=== PATIENT | male | born 1950 | race Caucasian/White ===

== ENCOUNTER 2022-10-12 06:35 | Day surgery (SDC) | payer MEDICARE, BC ==
[~2022-10-12] VITALS: Ht 165.1 cm; Wt 117.0 kg
[~2022-10-12 06:35] MED LIST: Aspir 8181 MG; LOSA25; OLME5TAB PO; TAMS.4ER
[2022-10-12] MEDS ORDERED: ROSU5 (07:02)
[2022-10-12] MEDS ORDERED: MELO7.5 (07:02)
[2022-10-12] MEDS ORDERED: METF500 (07:02)
== END 2022-10-12 09:05 | disposition home or self-care (01) ==
LOC: ORSCSDS 06:35
PROVIDERS: Surgery
PROC: 0DBC8ZX Excision of Ileocecal Valve, Via Natural or Artificial Opening Endoscopic, Diagnostic (ICD-10-PCS; principal; 2022-10-12 08:00)
PROC: 0DBK8ZX Excision of Ascending Colon, Via Natural or Artificial Opening Endoscopic, Diagnostic (ICD-10-PCS; principal; 2022-10-12 08:00)
DX: Z12.11 Encounter for screening for malignant neoplasm of colon (principal); Z86.010 Personal history of colon polyps; D12.2 Benign neoplasm of ascending colon; D12.0 Benign neoplasm of cecum; I10 Essential (primary) hypertension; G47.33 Obstructive sleep apnea (adult) (pediatric); E11.9 Type 2 diabetes mellitus without complications; E66.01 Morbid (severe) obesity due to excess calories; Z68.41 Body mass index [BMI] 40.0-44.9, adult; F17.220 Nicotine dependence, chewing tobacco, uncomplicated
CPT/HCPCS: 82947; 88305; J2704; J7120

== ENCOUNTER 2022-11-09 05:53 | Inpatient (IN) | payer MEDICARE, BC ==
[~2022-11-09] VITALS: Ht 165.1 cm; Wt 111.7 kg
[2022-11-09] VITALS (16 sets, daily range): BP systolic 106–148; BP diastolic 67–94
[~2022-11-09 05:53] MED LIST changes: -Aspir 8181 MG; +Aspir 8181 MG PO; +Ativan1 MG PO; +FERSU300 PO; -LOSA25; +LOSA25 PO; +MELO7.5 PO; +METF500 PO; +ROSU5 PO; -TAMS.4ER; +TAMS.4ER PO
--- NOTE | 2022-11-09 16:07 | NUR ---
SHIFT SUMMARY POD 0R OPEN HEMICOLECTOMY, A&OX4. PT WITH ACADEMIC ADVISING DIRECTOR, MEDICATED PER EMR. PT STATES CONCERN ABOUT BEING ABLE TO SLEEP THROUGH THE NIGHT. IV FLUIDS RUNNING PER EMR. GLORIA DRESSING MIDLINE WITH NO DRAINAGE, LAP SITE X3 WITH STAPLE CLOSURE. SCHULZ DRAINING YELLOW FLUID. CALL LIGHT WITHIN REACH, WILL REPORT TO DANE BAKER.
[2022-11-10 04:03] VITALS: BP 144/96
[2022-11-10 04:17] LABS: BASOPHILS ABSOLUTE AUTO 0.04 K/mm3 (0.00-0.23); BASOPHILS PERCENT AUTO 0 % (0-2); EOSINOPHILS ABSOLUTE AUTO 0.04 K/mm3 (0.00-0.68); EOSINOPHILS PERCENT AUTO 0 % (0-6); Hematocrit 38.1 % (37.0-53.0); Hemoglobin 11.2 g/dL (13.5-17.5); IMMATURE GRAN ABSOLUTE AUTO 0.04 K/mm3 (0.00-0.10); IMMATURE GRAN PERCENT AUTO 0 % (0-1); LYMPHOCYTES ABSOLUTE AUTO 1.41 K/mm3 (0.84-5.20); LYMPHOCYTES PERCENT AUTO 14 % (21-46); MONOCYTES ABSOLUTE AUTO 1.43 K/mm3 (0.16-1.47); MONOCYTES PERCENT AUTO 14 % (4-13); Mean Corpuscular HGB 22.2 pg (26.0-34.0); Mean Corpuscular HGB Conc 29.4 g/dL (31.5-36.5); Mean Corpuscular Volume 75 fL (80-100); Mean Platelet Volume 9.8 fL (9.1-12.4); NEUTROPHILS ABSOLUTE AUTO 7.18 K/mm3 (1.96-9.15); NEUTROPHILS PERCENT AUTO 71 % (41-73); Platelet Count 383 K/mm3 (150-400); RDW Coefficient Variation 26.6 % (11.7-14.2); RDW Standard Deviation 70.7 fL (35.1-46.3); Red Blood Cell Count 5.05 M/mm3 (4.30-5.90); White Blood Cell Count 10.14 K/mm3 (4.00-11.30)
[2022-11-10 04:36] LABS: Bun/Creatinine Ratio 14.1 (12.0-20.0); Calcium, Blood 8.5 mg/dL (8.5-10.1); Creatinine, Blood 0.71 mg/dL (0.60-1.20); Potassium, Blood 4.6 mmol/L (3.5-5.5)
--- NOTE | 2022-11-10 06:19 | NUR ---
SHIFT SUMMARY PT A&OX4, PLEASANT AND COOPERATIVE WITH CARE. NO ACUTE CHANGES. PAIN BEING MANAGED WITH BEDSIDE HARDBOARD PRESS OPERATOR. TOLERATING SMALL AMOUNT OF PO. GLORIA DRESSING C/D/I, LAP SITES OPEN TO AIR, NO DRAINAGE. SCHULZ PATIENT AND DRAINING TO GRAVITY. CALLS APPROPRIATELY, CALL LIGHT WITHIN REACH.
[2022-11-10 07:24] VITALS: BP 144/81
[2022-11-10 14:50] VITALS: BP 123/71
--- NOTE | 2022-11-10 17:38 | NUR ---
SUMMARY NO ACUTE CHANGES T/O SHIFT. PT TOLERATING CLEAR LIQUIDS. PAIN CONTROLLED W/ASSURANCE SENIOR. AMBULATED IN [place] AND SAT UP IN CHAIR. SCHULZ CATH DC'D THIS AFTERNOON. AWAITING FIRST VOID POST SCHULZ REMOVAL. CALL LIGHT IN REACH.
[2022-11-10 19:20] VITALS: BP 113/77
[2022-11-11 02:25] VITALS: BP 124/74
--- NOTE | 2022-11-11 07:08 | NUR ---
SUMMARY PT WITH URINARY RETENTION.BLADDER SCAN DONE PRIOR TO AMBULATION FOR BRP. PT VOIDED,BUT DID NOT USE URINAL FOR MEASURING.POST VOID BLADDEER SCANNED WITH MINIMAL RETENTION. VOIDED 425 ML LATER. NO FLATUS.
[2022-11-11 07:50] VITALS: BP 110/59
[2022-11-11 15:11] VITALS: BP 121/67
--- NOTE | 2022-11-11 16:25 | NUR ---
SUMMARY NO ACUTE CHANGES T/O SHIFT. PT SAT UP IN CHAIR AND AMBULATED IN HALLS. VOIDING W/O DIFFICULTY. PAIN CONTROLLED PER WINTERIZER. TOLERATING FULL LIQUIDS. DENIES PASSING FLATUS. CALL LIGHT AND WINTERIZER IN REACH.
[2022-11-11 19:43] VITALS: BP 137/79
[2022-11-12 04:37] VITALS: BP 112/71
[2022-11-12 07:33] VITALS: BP 118/64
--- NOTE | 2022-11-12 08:19 | NUR ---
SUMMARY PT HAD SOFT NON FORMED BM TONIGHT. UP IN CHAIR THIS AM.
[2022-11-12 15:15] VITALS: BP 155/81
--- NOTE | 2022-11-12 16:36 | NUR ---
SHIFT SUMMARY POD 3 RIGHT HEMICOLECTOMY MIDLINE INCISION WIHT GLORIA DRESSING. SOME SANGUNEIOUS DRAINAGE ON DRESSING. 3 LAP SITES, CLOSED WITH TAMIA. PT A&O X4. PT DENIES ANY PAIN, ROADING ENGINEER D/C'ED TODAY. PT AMBULATES WITH NURSE UP AND DOWN THE HALLS. PT'S ABDOMEN IS MIDLY DISTENTED, PT PASSING LITTLE GAS AND HAVING SMALL BOWEL MOVMENTS. PT TOLERATING FULL LIQUID DIET WELL. CALL LIGHT WITHIN REACH.
[2022-11-12 19:38] VITALS: BP 128/87
[2022-11-13 04:28] VITALS: BP 140/77
--- NOTE | 2022-11-13 04:52 | NUR ---
SHIFT SUMMARY PT A&OX4, PLEASANT AND COOPERATIVE WITH CARE. NO ACUTE CHANGES, VSS. MEDICATED ONCE FOR PAIN. TOLERATING PO INTAKE. INDEPENDENT IN ROOM, WENT FOR A WALK IN THE HALLS WELL. CPAP WHILE SLEEPING, SATS >90 RA WHEN AWAKE. MIDLINE GLORIA WITH DRIED SS DRAINAGE, DRESSING COMPRESSED. X3 LAP SITES NO DRAINAGE. PT REPORTS HE'S STILL PASSING FLATUS. CALLS APPROPRIATELY, CALL LIGHT WITHIN REACH.
[2022-11-13 08:14] VITALS: BP 127/66
[2022-11-13] MEDS ORDERED: Norco 5-325 Ta1 EACH PO (14:22)
[2022-11-13] MEDS ORDERED: IBUP800 PO (14:23)
--- NOTE | 2022-11-13 15:15 | NUR ---
DISCHARGE SUMMARY POD 4 R HEMICOLECTOMY MIDLINE INCISION WITH MILD SEROSANGENIUOS DRAINAGE, X3 LAP SITES OPEN TO AIR WITH STAPLE CLOSURE, NO DRAINAGE. PT A&O X4. MILD DISTENTION OF THE ABDOMEN. MILD EDEMA TO THE LEFT HAND AND TO LOWER EXTREMITIES. PT AMBULATES BY SELF. DISCHARGE INFORMATION WENT OVER WITH PT AND SPOUSE. NO QUESTIONS AT THIS TIME. ALL IV'S REMOVED. ALL BELONGINGS WITH PT. TRNASPORTED OUT BY WHEELCHAIR.
--- NOTE | 2022-11-13 15:42 | NUR ---
DISCHARGE DISCHARGE INSTRUCTIONS GIVEN BY STUDENT RN WITH THIS NURSE PRESENT. ALL QUESTIONS ANSWERED. DENIED FURTHER QUESTIONS. PT CONTINUES TO PASS GAS AND DENIES PAIN. PRESCRIPTION SENT WITH PATIENT AND SPOUSE.
== END 2022-11-13 15:14 | disposition home or self-care (01) | DRG 330 ==
LOC: SURS 05:53 → PRE IP 07:30 → SURS 12:38
PROVIDERS: ADMIT Surgery
PROC: 0DJD4ZZ Inspection of Lower Intestinal Tract, Percutaneous Endoscopic Approach (ICD-10-PCS; 2022-11-09)
PROC: 0WQF0ZZ Repair Abdominal Wall, Open Approach (ICD-10-PCS; 2022-11-09)
PROC: 0DTF0ZZ Resection of Right Large Intestine, Open Approach (ICD-10-PCS; principal; 2022-11-09 07:30)
DX: C18.0 Malignant neoplasm of cecum (principal); K42.0 Umbilical hernia with obstruction, without gangrene; N13.8 Other obstructive and reflux uropathy; Z68.41 Body mass index [BMI] 40.0-44.9, adult; M19.90 Unspecified osteoarthritis, unspecified site; N40.1 Benign prostatic hyperplasia with lower urinary tract symptoms; E11.9 Type 2 diabetes mellitus without complications; I10 Essential (primary) hypertension; E66.9 Obesity, unspecified; G47.33 Obstructive sleep apnea (adult) (pediatric); Z87.891 Personal history of nicotine dependence; Z99.89 Dependence on other enabling machines and devices; Z98.890 Other specified postprocedural states; Z88.0 Allergy status to penicillin; Z79.82 Long term (current) use of aspirin; Z79.899 Other long term (current) drug therapy
CPT/HCPCS: 36415; 80048; 82947; 85025; 88309; 94660; 94762; A9270; J1100; J1170; J1650; J1885; J1956; J2370; J2405; J2704; J2795; J3010; J7120

== ENCOUNTER 2024-03-18 09:44 | Day surgery (SDC) | payer MEDICARE, BC ==
[~2024-03-18] VITALS: Ht 165.1 cm; Wt 115.4 kg
[~2024-03-18 09:44] MED LIST changes: +Balanced Salt Epinephrine Irrigation Solution 500 mL IR SCH; +DAPAGLIFLOZIN10 MG; +IBUP800 PO; +Lidocaine HCl/Pf 1% 5 ML VIAL ONE; +Lidocaine HCl/Pf 1% 5 ML VIAL XX SCH; +MULVITA; +Moxifloxacin HCL 0.5 MG/0.1 ML 0.4MLSYR LEFTEYE SCH; +NS 500 ML IV ONE; +Norco 5-325 Ta1 EACH PO; +PHENYLEPHRINE\\TROPICAMIDE\\TETRACAINE OPHTHALMIC DILATING SOLN LEFTEYE PRN; +Povidone-Iodine 450 DROP/30 ML Solution LEFTEYE SCH; +Triamcinolone Inj Susp 40 MG / ML 1ML Vial INJ SCH; +Triamcinolone Inj Susp 40 MG / ML 1ML Vial ONE; +Vitamin B-12100 MCG; +Vitamin C100 M1; +ZINC15
[2024-03-18] MEDS ORDERED: NS 500 ML IV ONE ×2 (10:05→10:20)
[2024-03-18] MEDS ORDERED: FentaNYL Citrate 50 MCG/ML 2 ML Injection ONE (10:31)
[2024-03-18] MEDS ORDERED: Midazolam HCl 1MG / ML 2ML Vial ONE (10:31)
[2024-03-18 11:18] VITALS: BP 108/74
== END 2024-03-18 11:38 | disposition home or self-care (01) ==
LOC: ORSCSDS 09:44
PROVIDERS: Ophthalmology
PROC: 08RK3JZ Replacement of Left Lens with Synthetic Substitute, Percutaneous Approach (ICD-10-PCS; principal; 2024-03-18 11:00)
DX: E11.36 Type 2 diabetes mellitus with diabetic cataract (principal); H25.812 Combined forms of age-related cataract, left eye; H52.4 Presbyopia; Z96.1 Presence of intraocular lens; E11.65 Type 2 diabetes mellitus with hyperglycemia; G47.33 Obstructive sleep apnea (adult) (pediatric); N40.0 Benign prostatic hyperplasia without lower urinary tract symptoms; Z85.038 Personal history of other malignant neoplasm of large intestine; E66.9 Obesity, unspecified; Z68.41 Body mass index [BMI] 40.0-44.9, adult; Z79.82 Long term (current) use of aspirin; Z79.899 Other long term (current) drug therapy; Z87.891 Personal history of nicotine dependence
CPT/HCPCS: 82947; J2001; J2250; J3010; J3301; J7040; V2632